=== PATIENT | female | born 1970 | race Caucasian/White ===

== ENCOUNTER → 2022-10-28 16:09 | Outpatient (REF) | payer OTHER, SELFPAY | LOC: CLAB 16:09 | PROVIDERS: FAMILY PHYSICIAN Podiatrist Foot Surgery | DX: M71.349 Other bursal cyst, unspecified hand (principal) | CPT/HCPCS: 88304 ==

== ENCOUNTER → 2024-09-12 12:28 | Outpatient (REF) | payer OTHER, SELFPAY | LOC: HWWDC 12:28 | PROVIDERS: ATTENDING PHYSICIAN Nurse Practitioner Adult Health | DX: Z12.31 Encounter for screening mammogram for malignant neoplasm of breast (principal) | CPT/HCPCS: 77063; 77067 ==